=== PATIENT | male | born 1955 | race Caucasian/White ===

== ENCOUNTER → 2020-12-06 09:58 | Outpatient (CLI) | payer OTHER, SELFPAY ==
--- NOTE | 2020-12-06 10:07 | ECHOD_ITS ---
Reason For Study: CHEST PAIN Procedure This was a 2D Doppler, Color Flow transthoracic echocardiogram. Exam performed in department. Left Ventricle Normal LV size. Left ventricular systolic function is normal. The estimated ejection fraction is 60 %. Transmitral and pulmonary venous doppler flow suggestive of impaired relaxation of left ventricle. No regional wall motion abnormalities noted. Right Ventricle Normal RV size. Normal systolic function. Atria Normal left atrium. Normal right atrium. Mitral Valve Normal mitral valve. Tricuspid Valve Normal tricuspid valve. Aortic Valve Normal aortic valve. Trisinus/trileaflet aortic valve. Trivial aortic valve insufficiency. Pulmonic Valve Normal pulmonic valve. Great Vessels Mildly dilated aortic root. The pulmonary artery is normal size. Normal inferior vena cava. Pericardium/Pleural No pericardial effusion. MMode/2D Measurements & Calculations LVIDd: 5.5 cm IVSd: 1.1 cm Ao root diam: 4.1 cm LVIDs: 3.3 cm LVPWd: 1.00 cm RVDd: 3.1 cm FS: 40.1 % LAV(MOD-bp): 47.8 ml LA A4 area: 17.5 cm2 LA dimension(2D): 3.7 cm LAV(MOD-bp) Indexed: 22.8 ml/m2 LAV(MOD-sp2): 46.0 ml LAV(MOD-sp4): 44.8 ml RA A4 area: 11.9 cm2 Time Measurements MV dec time: 0.23 sec Doppler Measurements & Calculations MV E max zhang: 62.8 cm/sec Lat Peak E' Zhang: 10.9 cm/sec Med Peak E' Zhang: 11.0 cm/sec MV A max zhang: 69.6 cm/sec E/E' lat: 5.8 E/E' med: 5.7 MV E/A: 0.90 Ao V2 max: 149.6 cm/sec AI max zhang: 476.4 cm/sec PA V2 max: 78.0 cm/sec Ao max P.0 mmHg AI max P.8 mmHg AI dec slope: 213.5 cm/sec2 AI P1/2t: 653.6 msec ECHO/Echo Complete Interpretation Summary Normal LV size. Left ventricular systolic function is normal. The estimated ejection fraction is 60 %. Trivial aortic valve insufficiency. Mildly dilated aortic root. Ordering Physician: Anna^Aydin^^^PAVING SUPERVISOR, PAVING SUPERVISOR-C Referring Physician: Aydin Castillo Performed By: Tita Quarles, KATIANA, RVT
--- NOTE | 2020-12-06 17:32 | STRESSREP ---
Stress Test Report Exercise stress test. 65-year-old man with a history of chest pain. Stress protocol: Resting EKG demonstrates normal sinus rhythm with a rate of 68 bpm normal intervals are noted resting blood pressures 140/74 mmHg. The patient exercised according to the regular José protocol for a total duration of 7 minutes and 35 seconds. The maximum heart rate attained was 148 bpm which was 94% of maximum predicted heart rate the maximum workload was 9.5 metabolic equivalents. At rest there were no ST or T wave changes noted to suggest ischemia. The patient completed 1 minute and 35 seconds into stage III of the José protocol. At peak exercise upsloping ST changes were noted which did not meet the criteria for ischemia. No clinical angina was noted the test was terminated due to dyspnea. The peak blood pressure was 174/90 mmHg with a rate pressure product of 25,700. Occasional premature ventricular complexes were noted. Conclusion: Stress test with no EKG criteria for ischemia at a high workload. Good functional aerobic capacity.
== END ==
PROVIDERS: PCP Nurse Practitioner Family; Referring Provider Nurse Practitioner Family; Visit Provider Nurse Practitioner Family
DX: R07.9 Chest pain, unspecified (principal)
CPT/HCPCS: 93017; 93306

== ENCOUNTER 2021-10-07 10:02 | Outpatient (CLI) | payer OTHER, SELFPAY ==
--- NOTE | 2021-10-07 10:07 | CDU_ITS ---
Reason For Study: blurred vision Rt. Velocities/BP Lt. Velocities/BP Prox CCA 125.6/25.2 cm/sec. Prox CCA 124.7/27.9 cm/sec. Mid CCA 113.9/26.5 cm/sec. Mid CCA 122.9/27.9 cm/sec. Dist CCA 108.6/25.2 cm/sec. Dist CCA 104.8/26.2 cm/sec. Prox ICA 63.0/11.4 cm/sec. Prox ICA 70.4/18.8 cm/sec. Mid ICA 71.6/20.0 cm/sec. Mid ICA 71.6/21.2 cm/sec. Dist ICA 94.9/29.8 cm/sec. Dist ICA 76.5/22.5 cm/sec. Rt. ICA/CCA = .8. Lt. ICA/CCA = .6. Prox ECA 104.7/18.8 cm/sec. Prox ECA 126.6/20.6 cm/sec. Rt. Vert. 44.6/15.1 cm/sec. Lt. Vert. 45.4/8.0 cm/sec. Right Extracranial There is intimal thickening but no significant atherosclerotic plaque noted in the right common carotid artery. There is intimal thickening but no significant atherosclerotic plaque noted in the right internal carotid artery. There is intimal thickening but no significant atherosclerotic plaque noted in the right external carotid artery. Antegrade flow is noted in the right vertebral artery. Left Extracranial There is intimal thickening but no significant atherosclerotic plaque noted in the left common carotid artery. There is intimal thickening but no significant atherosclerotic plaque noted in the left internal carotid artery. There is intimal thickening but no significant atherosclerotic plaque noted in the left external carotid artery. Antegrade flow is noted in the left vertebral artery. Procedure Carotid Duplex 80137. This is a Carotid Duplex examination using B-mode, color flow and specral Doppler. The exam was diagnostic. Exam performed in department. VL/Carotid Duplex Ultrasound Interpretation Summary No significant atherosclerotic plaque or stenosis noted in the internal carotid arteries bilaterally. Flow within the vertebral arteries is antegrade bilaterally. Ordering Physician: Aydin Castillo Performed By: Tirso Cason RVT
--- NOTE | 2021-10-07 10:08 | ECHOD_ITS ---
Reason For Study: CHEST PAIN Procedure This was a 2D Doppler, Color Flow transthoracic echocardiogram. Exam performed in department. Left Ventricle Normal LV size. Left ventricular systolic function is normal. Stage 1 diastolic dysfunction. No regional wall motion abnormalities noted. Right Ventricle Normal RV size. Normal systolic function. Atria Normal left atrium. Normal right atrium. Mitral Valve Mitral valve not well visualized. Tricuspid Valve Normal tricuspid valve. Aortic Valve The aortic valve is not well visualized. Trivial aortic valve insufficiency. Pulmonic Valve Normal pulmonic valve. Great Vessels Normal aortic root. The pulmonary artery is normal size. Normal inferior vena cava. Pericardium/Pleural No pericardial effusion. MMode/2D Measurements & Calculations LVIDd: 3.9 cm IVSd: 0.93 cm Ao root diam: 3.7 cm LVIDs: 2.6 cm LVPWd: 0.97 cm RVDd: 3.4 cm FS: 33.9 % LAV(MOD-bp): 36.9 ml LVAd ap4: 33.2 cm2 SV(MOD-sp4): 74.0 ml LAV(MOD-bp) Indexed: 17.6 ml/m2 LVLd ap4: 8.1 cm LAV(MOD-sp2): 36.9 ml EDV(MOD-sp4): 112.0 ml LAV(MOD-sp4): 36.3 ml EDV(sp4-el): 115.5 ml LVAs ap4: 17.5 cm2 LVLs ap4: 6.8 cm ESV(MOD-sp4): 38.0 ml ESV(sp4-el): 37.8 ml EF(MOD-sp4): 66.1 % EF(sp4-el): 67.2 % SV(sp4-el): 77.6 ml LA A4 area: 16.1 cm2 LA dimension(2D): 3.0 cm RA A4 area: 14.7 cm2 Time Measurements MV dec time: 0.31 sec Doppler Measurements & Calculations MV E max zhang: 62.7 cm/sec Lat Peak E' Zhang: 14.0 cm/sec Med Peak E' Zhang: 13.6 cm/sec MV A max zhang: 97.2 cm/sec E/E' lat: 4.5 E/E' med: 4.6 MV E/A: 0.64 Ao V2 max: 183.5 cm/sec LV V1 max: 123.7 cm/sec PA V2 max: 125.0 cm/sec Ao max P.5 mmHg LV V1 max P.1 mmHg ECHO/Echo Complete Interpretation Summary Normal LV size. Left ventricular systolic function is normal. No regional wall motion abnormalities noted. Stage 1 diastolic dysfunction. The study was technically limited. The study was technically difficult. Ordering Physician: Anna^Aydin^^^BIOFUELS PRODUCTION ASSOCIATE, [employer] PRODUCTION ASSOCIATE-C Referring Physician: Aydin Castillo Performed By: Priscila Amato RADHA
== END 2021-10-07 23:59 | disposition home or self-care (01) ==
PROVIDERS: PCP Nurse Practitioner Family; Referring Provider Nurse Practitioner Family; Visit Provider Nurse Practitioner Family
DX: R07.9 Chest pain, unspecified (principal); H53.8 Other visual disturbances
CPT/HCPCS: 93306; 93880